=== PATIENT | female | born 1960 | race Caucasian/White ===

== ENCOUNTER → 2021-02-05 14:54 | Outpatient (CLI) | payer OTHER, SELFPAY ==
--- NOTE | ~2021-02-05 | MM_ITS ---
EXAMINATION: MM screening mary BI w dae HISTORY: Screening TECHNIQUE: Craniocaudal and mediolateral oblique 3-D tomosynthesis images were obtained and synthetic 2-D images were generated. CAD analysis was submitted and interpreted. COMPARISON: No prior mammogram is available for comparison at this institution. BREAST PARENCHYMAL COMPOSITION: There are scattered areas of fibroglandular density. FINDINGS: Several circumscribed right breast masses are noted, the largest 1 cm. Approximately 6.5 mm circumscribed left breast mass. Bilateral diagnostic mammography and bilateral breast ultrasound examination are recommended. IMPRESSION: 1. Bilateral breast masses 2. Bilateral diagnostic mammography and bilateral breast ultrasound examination are recommended. BI-RADS Category 0: Incomplete: Needs additional imaging evaluation. Reviewed, dictated and finalized at location A.
== END ==
PROVIDERS: PCP Registered Nurse; Visit Provider Registered Nurse
DX: Z12.31 Encounter for screening mammogram for malignant neoplasm of breast (principal); R92.8 Other abnormal and inconclusive findings on diagnostic imaging of breast
CPT/HCPCS: 77063; 77067

== ENCOUNTER 2022-06-13 20:56 | Emergency (ER) | payer OTHER, SELFPAY ==
--- NOTE | ~2022-06-13 | XR_ITS ---
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 RESULT: Lines, tubes, and devices: None. Lungs and pleura: Clear. Cardiomediastinal silhouette: Unremarkable. Other: No acute osseous or upper abdominal finding. IMPRESSION: No acute cardiopulmonary process. Reviewed, dictated and finalized at location K. FING MACHINE OPERATOR
--- NOTE | ~2022-06-13 | CT_ITS ---
Clinical Indication: Tachycardia CT Scan of the Chest with Contrast: Technique: Contiguous sections were acquired throughout the chest after intravenous administration of 100 cc of Omnipaque 350. Dose reduction technique was used on this scan by utilizing automated expos ure control and iterative reconstruction technique. The dose-length product (DLP) was 194.16 mGy-cm. Findings: There is no evidence of any significant mediastinal, hilar or axillary lymphadenopathy. There is no f illing defect in the pulmonary arterial tree to suggest pulmonary embolus. There is no evidence of ao rtic dissection or aneurysm. There is no evidence of pleural or pericardial effusion. The lungs are clear. No pulmonary nodules or infiltrates are noted. Images through the upper abdomen reveal pancreatic calcifications, compatible with chronic pancreatit is. Impression: No evidence of pulmonary embolus, aortic dissection, or aortic aneurysm. Clear lungs. Reviewed, dictated and finalized at [facility]. 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 Clear lungs.
[2022-06-13 21:00] VITALS: BP 141/84; PULSE 101; RESP 20; TEMP 36.3; O2SAT 99
--- NOTE | 2022-06-13 21:00 | ECG_ITS ---
Measurements Intervals [place]n Rate: 107 P: 63 PA: 120 QRS: 66 QRSD: 82 T: 48 QT: 330 QTc: 440 Interpretive Statements SINUS TACHYCARDIA POSSIBLE LEFT ATRIAL ENLARGEMENT POSSIBLE LEFT VENTRICULAR HYPERTROPHY ABNORMAL ECG NO PREVIOUS ECG AVAILABLE FOR COMPARISON Electronically Signed On 06-14-2022 17:42:13 [employer]AC[employer] by Aj Mock M.D.
[2022-06-13 21:48] LABS: Basophils Percent Auto 0.5 % (0.2-1.2); Eosinophils Absolute Auto 0.1 K/mm3 (0-0.3); Eosinophils Percent Auto 0.9 % (0-4.4); Hematocrit 45.4 % (37.0-47.0); Hemoglobin 15.2 g/dL (12.0-15.0); Immature Granulocyte Absolute 0.01 K/mm3 (0.00-0.031); Immature Granulocyte Percent A 0.2 % (0-0.5); Lymphocytes Absolute Auto 2.11 K/mm3 (0.9-3.2); Lymphocytes Percent Auto 31.8 % (18.3-44.2); Mean Corpuscular HGB Conc 33.5 g/dl (32-36); Mean Corpuscular Hemoglobin 30.5 pg (26-34); Monocytes Absolute Auto 0.5 K/mm3 (0.1-0.6); Monocytes Percent Auto 7.2 % (2.6-8.5); Neutrophils Absolute Auto 3.9 K/mm3 (1.3-6.7); Neutrophils Percent Auto 59.4 % (45.5-73.1); Platelet Count Result 293 k/mm3 (150-375); Red Blood Count 4.99 M/mm3 (4.2-5.4); Red Cell Distribution Width 12.8 % (11.5-14.5); White Blood Count 6.6 K/mm3 (4.5-10.0)
[2022-06-13 21:59] LABS: Prothrombin Time 12.4 Seconds (11.1-14.7)
[2022-06-13 22:03] LABS: Alanine Aminotransferase 32 U/L (6-35); Alkaline Phosphatase 73 U/L (38-126); Anion Gap 7 mmol/L (8-16); Aspartate Amino Transferase 29 U/L (14-36); Bilirubin,Total 0.3 mg/dL (0.2-1.3); Blood Urea Nitrogen 15 mg/dL (7-17); Calcium 10.1 mg/dL (8.4-10.2); Carbon Dioxide 31 mmol/L (22-30); Chloride 104 mmol/L (98-107); Estimated CRCL calculation 53 ml/min; Estimated Glomerular Filt Rate > 60; Glucose 98 mg/dL (65-110); Lipase 207 U/L (23-300); Potassium 3.5 mmol/L (3.4-5.0); Sodium 142 mmol/L (137-145)
[2022-06-13 22:13] LABS: Troponin I < 0.012 ng/mL (0.000-0.034)
[2022-06-13 22:14] VITALS: BP 118/80; PULSE 103; PULSE 104; RESP 26; O2SAT 98
--- NOTE | 2022-06-13 22:27 | ED.ARRPALP ---
HPI - Arrhythmia/Palpitations General Chief Complaint: Arrhythmia/Palpitations Stated Complaint: heart episodes Time Seen by Provider: 06/13/22 22:08 History of Present Illness HPI narrative: This is a 61-year-old female past medical history of hypertension, presenting emergency department complaining of palpitations. She states she has had palpitations for the past 10 years, though over the last 2 to 3 weeks they have been increasing in frequency. She states her heart rate reaches the 200s with a home monitor and is accompanied by lightheadedness. She denies loss of consciousness or chest pain with these episodes. They last between 10 seconds to 20 minutes. She states she has been seen by her primary care doctor, has had an EKG and Holter monitoring, though does not know the results. Related Data Allergies Allergy/AdvReac Type Severity Reaction Status Date / Time No Known Allergies Allergy Verified 06/13/22 22:15 Review of Systems Review of Systems: CONSTITUTIONAL: Denies fever, chills, or sweats. CARDIOVASCULAR: Palpitations denies chest pain, or edema. RESPIRATORY: Denies cough or dyspnea. GASTROINTESTINAL: Denies abdominal pain, nausea, vomiting, or diarrhea. GENITOURINARY: Denies dysuria or hematuria. SKIN: Denies rash or itching. MUSCULOSKELETAL: Denies back pain, joint pain, or myalgia. NEUROLOGIC: Intermittent lightheadedness denies headache, numbness, dizziness, or weakness. PSYCHIATRIC: Denies anxiety or depression. PMFSH Past Medical History Medical History (Updated 06/13/22 @ 22:30 by Douglas Garcia MD) Hypertension Palpitations Surgical History Surgical History (Updated 06/13/22 @ 22:29 by Douglas Garcia MD) No pertinent past surgical history Social History Social History (Updated 06/13/22 @ 22:29 by Douglas Garcia MD) Smoking status: Never smoker Alcohol intake: current Drinks per week: 2 Substance use: never Exam Narrative: GENERAL: Well-developed, well-nourished, and in no acute distress. HEAD: Normocephalic, atraumatic. EYES: PERRLA and EOMI. ENT: Nares clear, no rhinorrhea or epistaxis. Mucous membranes moist. Oropharynx without tonsillar hypertrophy exudate or other lesions. NECK: Supple. No adenopathy or masses. No carotid bruits or JVD CHEST: Clear to auscultation. No respiratory distress. No wheezes rales or rhonchi HEART: Tachycardic with regular rhythm. No murmur heard. Normal peripheral pulses. ABDOMEN: Soft, nontender, nondistended, normal active bowel sounds. EXTREMITIES: Normal range of motion. No edema. SKIN: Warm, dry, no rash. NEURO: No focal deficits. Alert and oriented x3. PSYCH: Normal mood and affect. Course Course Emergency Course: :51 -EKG demonstrated sinus tachycardia without arrhythmia. Labs unremarkable. Chest x-ray not concerning for acute cardiopulmonary process. On my review of the CTA there is no PE. The patient and her voiced impatience and wished to be discharged prior to receiving the results. Will discharge AMA with recommendation to follow-up with her primary care doctor. Vital Signs Vital signs: Vital Signs Temperature 97.3 F L 06/13/22 21:00 Pulse Rate 101 H 06/13/22 21:00 Respiratory Rate 20 06/13/22 21:00 Blood Pressure 141/84 H 06/13/22 21:00 Pulse Oximetry 99 06/13/22 21:00 Oxygen Delivery Room Air 06/13/22 21:00 Temperature 97.3 F L 06/13/22 21:00 Pulse Rate 104 H 06/13/22 22:14 Respiratory Rate 26 H 06/13/22 22:14 Blood Pressure 118/80 06/13/22 22:14 Pulse Oximetry 98 06/13/22 22:14 Oxygen Delivery Room Air 06/13/22 21:00 MDM - Arrhythmia/Palpitations MDM Narrative Medical decision making narrative: Plan: EKG, labs, imaging, PE study, reassess Differential Diagnosis Differential diagnosis: Likely palpitations and other (Paroxysmal A. fib, supraventricular tachycardia, metabolic abnormality, PE, other) Lab Data 06/13/22 21:13 06/13/22 2
--- NOTE | 2022-06-14 00:55 | PC.NURSE ---
patient placed call to desk while telegraphic typewriter operator was in another room telegraphic typewriter operator immediately went to room upon finishing task patients very angry that it has been an hour since scan was done and they dont have results yelling at nurse stating they are going to just leave without result as they do not want to wait for it any longer provider notified and speaking with patient
--- NOTE | 2022-06-14 01:46 | PC.NURSE ---
spoke with radiology about scan results they will check with radiologist about results
== END 2022-06-14 01:55 | disposition left against medical advice (07) ==
PROVIDERS: Emergency Provider Preventive Medicine Aerospace Medicine; PCP Registered Nurse
DX: R00.2 Palpitations (principal); I10 Essential (primary) hypertension; R00.0 Tachycardia, unspecified; R94.31 Abnormal electrocardiogram [ECG] [EKG]
CPT/HCPCS: 36415; 71046; 71275; 80053; 83690; 84484; 85025; 85610; 85730; 93005; 99284; Q9967

== ENCOUNTER → 2023-02-18 09:52 | Outpatient (CLI) | payer BC, SELFPAY ==
--- NOTE | ~2023-02-18 | XR_ITS ---
Right Hand Technique: PA, oblique, and lateral views were obtained. Clinical History: Pain Findings: No acute fracture or dislocation is seen. Mild degenerative changes are noted at the DIP kelvin ints diffusely. Soft tissues are unremarkable. Impression: Mild degenerative changes of the DIP joints and the hand. Reviewed, dictated and finalized at location . Impression: Mild degenerative changes of the DIP joints and the hand.
== END ==
PROVIDERS: PCP Registered Nurse; Visit Provider Registered Nurse
DX: M79.644 Pain in right finger(s) (principal)
CPT/HCPCS: 73130

== ENCOUNTER → 2023-03-21 13:50 | Outpatient (CLI) | payer BC, SELFPAY ==
--- NOTE | ~2023-03-21 | US_ITS ---
EXAMINATION: US soft tissue UE RT DATE: 03/21/2023 14:14 INDICATION: Foreign body at the right third digit TECHNIQUE: Multiple grayscale and Doppler ultrasound images of the region of concern at the right thi rd distal phalanx were obtained. COMPARISON: Radiographs dated 02/18/2023 FINDINGS: There is a 5 x 4 x 3 mm hypoechoic lesion in the subcutaneous tissues at the region of concern. Withi n this hypoechoic region is approximately 1.6 mm linear echogenic structure with suggestion of some p osterior acoustic shadowing. Appearance would be consistent with a small amount of fluid or phlegmono us change surrounding a tiny foreign body. The possible foreign body is located approximately 2 mm de ep to the level of the skin surface. IMPRESSION: 1. Suggestion of small amount of fluid and/or phlegmonous change surrounding a 1.6 mm linear echogeni c and shadowing which could represent a reported foreign body at the region of concern. Reviewed, dictated and finalized at location A. IMPRESSION: 1. Suggestion of small amount of fluid and/or phlegmonous change surrounding a 1.6 mm linear echogenic and shadowing which could represent a reported foreign body at the region of concern.
== END ==
PROVIDERS: PCP Registered Nurse; Visit Provider Plastic Surgery
DX: M79.5 Residual foreign body in soft tissue (principal)
CPT/HCPCS: 76882

== ENCOUNTER → 2023-06-01 10:59 | Outpatient (CLI) | payer BC, SELFPAY ==
--- NOTE | ~2023-06-01 | CT_ITS ---
EXAMINATION: CT abdomen pelvis wo/w con DATE: 06/01/2023 11:49 INDICATION: Gross hematuria TECHNIQUE: Computed tomography (CT) of the abdomen and pelvis was performed without intravenous contr ast. CT of the abdomen and pelvis was then performed with a total of 130 mL Omnipaque 350 intravenous contrast using a double-bolus technique for simultaneous opacification of the renal parenchyma and r enal collecting system. The dose-length product (DLP) was 1007.29 mGy-cm. Automated exposure control and iterative reconstruction technique were employed. COMPARISON: None FINDINGS: Minimal dependent atelectasis is present in the lung bases. The heart size is normal. The l iver, spleen, gallbladder, and adrenal glands are normal. Punctate calcifications throughout the panc reas are consistent with chronic pancreatitis. No stones are identified in the kidneys, ureters, or b ladder. No hydronephrosis or hydroureter. No suspicious renal or urothelial lesion is identified. Alt kylie portions of the left ureter do not opacify, no mass or stricture are seen. No pathologically en larged abdominal or pelvic lymph nodes are identified. No free intraperitoneal gas or evidence of bow el obstruction. There is mild lumbar spondylosis. IMPRESSION: 1. No CT correlate for the patient's symptoms. 2. Findings consistent with chronic pancreatitis. Reviewed, dictated and finalized at location L. WARPER
[2023-06-01 11:25] LABS: Estimated Glomerular Filt Rate > 60
== END ==
PROVIDERS: PCP Registered Nurse
DX: R31.0 Gross hematuria (principal)
CPT/HCPCS: 74178; Q9967